=== PATIENT | female | born 1985 | race Caucasian/White ===

== ENCOUNTER 2021-11-26 04:46 | Emergency (ER) | payer SELFPAY ==
[2021-11-26] MEDS ORDERED: NA CHLORIDE 0.9% 1,000 ML ONE (05:20)
[2021-11-26 05:38] LABS: Absolute Lymphocytes (CBC) 0.8 K/uL (0.7-4.9); Hematocrit 40.3 % (36.0-45.0); Lymphocytes % 13.7 % (15.3-44.8); MCV 84.1 fL (80-100); MPV 11.9 fL (7.6-11.3); RBC Red Blood Cell Count 4.79 M/uL (3.86-4.86)
[2021-11-26 05:49] LABS: ALT/SGPT 80 U/L (12-78); AST/SGOT 55 U/L (15-37); Albumin 3.7 g/dL (3.4-5.0); Alkaline Phosphatase 65 U/L (45-117); BUN Blood Urea Nitrogen 8 mg/dL (7-18); Bicarbonate 19 mmol/L (21-32); Bilirubin Direct 0.2 mg/dL (0-0.2); Glomerular Filtration Rate 76 ml/min (=/>90); Glucose Level 95 mg/dL (74-106); Lipase 59 U/L (73-393); NT PRO-BNP 265 pg/mL (<125); Potassium 3.6 mmol/L (3.5-5.1); Protein, Total 7.1 g/dL (6.4-8.2); Sodium Level 137 mmol/L (136-145)
[2021-11-26 05:50] LABS: Troponin High Sensitivity < 3.0 pg/mL (<58.9)
[2021-11-26 06:41] LABS: Blood Morphology Comment NOT SEEN (NOT SEEN); Platelet Estimate DECR; Platelets, Giant FEW; White Blood Cell Scan OK (OK)
--- NOTE | 2021-11-26 06:55 | EDPHYS ---
Physician Documentation [facility] Name: Irina Kim Age: 36 yrs Sex: Female : 1985 Arrival Date: 11/26/2021 Time: 04:49 Bed 5 Private MD: ED Physician Zi Rodrigues HPI: 11/26 05:31 This 36 yrs old Female presents to ER via Ambulatory with complaints of judit Fever, Pain All Over, Chest Pain, Sore Throat, Abdominal Pain. 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 - Social history:: Smoking status: Patient reports the use of cigarette tobacco products, smokes one-half pack cigarettes per day. ROS: 05:32 Eyes: Negative for injury, pain, redness, and discharge, Neck: Negative for injury, judit pain, and swelling, Cardiovascular: Negative for chest pain, palpitations, and edema, Respiratory: Negative for shortness of breath, cough, wheezing, and pleuritic chest pain, Abdomen/GI: Negative for abdominal pain, nausea, vomiting, diarrhea, and constipation, Back: Negative for injury and pain, : Negative for injury, bleeding, discharge, and swelling, MS/Extremity: Negative for injury and deformity, Skin: Negative for injury, rash, and discoloration, Neuro: Negative for headache, weakness, numbness, tingling, and seizure, Psych: Negative for depression, anxiety, suicide ideation, homicidal ideation, and hallucinations, Allergy/Immunology: Negative for hives, rash, and allergies, Endocrine: Negative for neck swelling, polydipsia, polyuria, polyphagia, and marked weight changes, Hematologic/Lymphatic: Negative for swollen nodes, abnormal bleeding, and unusual bruising. 05:32 Constitutional: Positive for body aches, chills, fatigue, fever, malaise, poor PO intake. 05:32 ENT: Positive for difficulty handling secretions, difficulty swallowing, ear pain, hoarseness, rhinorrhea, sinus congestion, sinus pain, sore throat. 05:32 Neck: Positive for swollen nodes. Exam: 05:32 Constitutional: This is a well developed, well nourished patient who is awake, alert, judit and in no acute distress. Head/Face: Normocephalic, atraumatic. Eyes: Pupils equal round and reactive to light, extra-ocular motions intact. Lids and lashes normal. Conjunctiva and sclera are non-icteric and not injected. Cornea within normal limits. Periorbital areas with no swelling, redness, or edema. Neck: Trachea midline, no thyromegaly or masses palpated, and no cervical lymphadenopathy. Supple, full range of motion without nuchal rigidity, or vertebral point tenderness. No Meningismus. Chest/axilla: Normal chest wall appearance and motion. Nontender with no deformity. No lesions are appreciated. Cardiovascular: Regular rate and rhythm with a normal S1 and S2. No gallops, murmurs, or rubs. Normal PMI, no JVD. No pulse deficits. Respiratory: Lungs have equal breath sounds bilaterally, clear to auscultation and percussion. No rales, rhonchi or wheezes noted. No increased work of breathing, no retractions or nasal flaring. Abdomen/GI: Soft, non-tender, with normal bowel sounds. No distension or tympany. No guarding or rebound. No evidence of tenderness throughout. Back: No spinal tenderness. No costovertebral tenderness. Full range of motion. Female : Normal external genitalia. Skin: Warm, dry with normal turgor. Normal color with no rashes, no lesions, and no evidence of cellulitis. MS/ Extremity: Pulses equal, no cyanosis. Neurovascular intact. Full, normal range of motion. Neuro: Awake and alert, GCS 15, oriented to person, place, time, and situation. Cranial nerves II-XII grossly intact. Motor strength 5/5 in all extremities. Sensory grossly intact. Cerebellar exam normal. Normal gait. 05:32 ENT: Posterior pharynx: Airway: normal, no evidence of obstruction, Uvula: midline, edematous, erythema, swelling, is not appreciated, erythema, that is mild, exudate, is not appreciated. 05:38 ECG was reviewed by the Attending Physician. [facility] Vital Signs: 05:07 BP 147 / 97; Pulse 80; Resp 18; Temp 99.5(O); Pulse Ox 100% on R/A; Weight 86.18 kg; sm5 Height 5 ft. 4 in. (162.56 cm); Pain 8/10; 07:15 BP 134 / 94; Pulse 65; Resp 16; Temp 98.4(O); Pulse Ox 98% ; vg1 05:07 Body Mass Index 32.61 (86.18 kg, 162.56 cm) 5 MDM: 04:59 Patient medically screened. [facility] 05:32 Differential diagnosis: viral Infection, bacterial infection, URI, bronchitis, judit pneumonia gastroenteritis. Data reviewed: vital signs, nurses notes, lab test result(s), EKG, radiologic studies, plain films. Data interpreted: quality assurance monitor final: rate is 80 beats/min, rhythm is normal sinus rhythm, regular, Pulse oximetry: on room air. Counseling: I had a detailed discussion with the patient and/or guardian regarding: the historical points, exam findings, and any diagnostic results supporting the discharge/admit diagnosis, lab results, radiology results, the need for outpatient follow up, for definitive care, a family practitioner. 11/26 05:01 Order name: Basic Metabolic Panel; Complete Time: 06:54 [facility] 11/26 05:01 Order name: CBC with Diff; Complete Time: 06:54 [facility] 11/26 05:01 Order name: D-Dimer; Complete Time: 06:54 [facility] 11/26 05:01 Order name: LFT's; Complete Time: 06:54 [facility] 11/26 05:01 Order name: Magnesium; Complete Time: 06:54 [facility] 11/26 05:01 Order name: NT PRO-BNP; Complete Time: 06:54 [facility] 11/26 05:01 Order name: Troponin HS; Complete Time: 06:54 [facility] 11/26 05:01 Order name: XRAY Chest (1 view) [facility] 11/26 05:01 Order name: Lipase; Complete Time: 06:54 [facility] 11/26 05:01 Order name: SARS-COV-2 RT PCR (Document "Date of Onset" if Symptomatic); Complete Time: [facility] 06:54 11/26 05:01 Order name: Strep; Complete Time: 06:54 [facility] 11/26 05:01 Order name: Flu; Complete Time: 06:54 [facility] 11/26 05:50 Order name: Throat Culture [facility] 11/26 06:41 Order name: CBC Smear Scan; Complete Time: 06:54 [facility] 11/26 05:01 Order name: EKG; Complete Time: 05:02 [facility] 11/26 05:01 Order name: Cardiac monitoring; Complete Time: [facility] 11/26 05:01 Order name: EKG - Nurse/Tech; Complete Time: [facility] 11/26 05:01 Order name: IV Saline Lock; Complete Time: [facility] 11/26 05:01 Order name: Labs collected and sent; Complete Time: [facility] 11/26 05:01 Order name: O2 Per Protocol; Complete Time: [facility] 11/26 05:01 Order name: O2 Sat Monitoring; Complete Time: : [facility] EC:38 Rate is 75 beats/min. Rhythm is regular. QRS [place] is Normal. [place] interval is normal. QRS judit interval is normal. QT interval is normal. No Q waves. T waves are Normal. No ST changes noted. Clinical impression: Normal ECG and No evidence of ischemia. Interpreted by me. Reviewed by me. Administered Medications: Drug: NS 0.9% 1000 ml Route: IV; Rate: 1 bolus; Site: left antecubital; as6 07:30 Follow up: IV Status: Completed infusion; IV Intake: 1000ml vg1 07:05 CANCELLED (Duplicate Order): Motrin (ibuprofen) 800 mg PO once [facility] 07: Drug: Zithromax (azithromycin) 500 mg Route: PO; vg1 08:12 Follow up: Response: No adverse reaction vg1 07:22 Drug: Zofran (Ondansetron) 4 mg Route: IVP; Site: left antecubital; vg1 08:12 Follow up: Response: No adverse reaction; Marked relief of symptoms vg1 07:26 Drug: fentaNYL (PF) 50 mcg Route: IVP; Site: left antecubital; vg1 08:12 Follow up: Response: No adverse reaction; Pain is decreased; RASS: Alert and Calm (0) vg1 07:29 Not Given (Patient Refused): Aspirin Chewable Tablet 81 mg PO once vg1 07:29 Not Given (Patient Refused): Tylenol 1000 mg PO once vg1 Disposition Summary: 11/26/21 06:54 Discharge Ordered Location: Home judit Problem: new judit Symptoms: have improved judit Condition: Stable judit Diagnosis - Acute upper respiratory infection, unspecified judit - Fever, unspecified judit - Other malaise and fatigue judit - Coronavirus infection, unspecified judit - SARS-associated coronavirus as the cause of diseases classified elsewhere [facility] Followup: judit - With: Private Physician - When: 2 - 3 days - Reason: Recheck today's complaints, Continuance of care, Re-evaluation by your physician Discharge Instructions: - Discharge Summary Sheet judit - Fever, Adult judit - Upper Respiratory Infection, Adult judit - Cool Mist Vaporizer judit - Upper Respiratory Infection, Adult, [id number] [facility] - Aspirin and Your Heart judit - Cough, Adult judit - COVID-19 [facility] - COVID-19 Frequently Asked Questions [facility] - Things to Know about the COVID-19 Pandemic - [facility] - 10 Things You Can Do to Manage Your COVID-19 Symptoms at Home - [facility] - COVID-19: Quarantine vs. Isolation - [facility] - Prevent the Spread of COVID-19 if You Are Sick - [facility] Forms: - Medication Reconciliation Form [facility] - Thank You Letter [facility] - Antibiotic Education [facility] - Prescription Opioid Use [facility] Prescriptions: - budesonide 180 mcg/actuation Inhalation aerosol powdr breath activated - inhale 1 puff by INHALATION route 2 times per day; 1 Pump; Refills: 0, Product [facility] Selection Permitted - Pepcid 20 mg Oral Tablet - take 1 tablet by ORAL route every 12 hours for 21 days; 42 tablet; Refills: 0, [facility] Product Selection Permitted - Zithromax 500 mg Oral Tablet - take 1 tablet by ORAL route once daily for 5 days; 5 tablet; Refills: 0, [facility] Product Selection Permitted Signatures: Dispatcher [employer] Zi Davidson MD MD cha Garcia, Victoria RN RN vg1 Fei Mcfadden RN RN as6 Sara Godwin RN RN sm5 Corrections: (The following items were deleted from the chart) 07:05 05:30 Motrin (ibuprofen) 800 mg PO once ordered. [facility]
--- NOTE | 2021-11-26 06:55 | ER ---
Nurse's Notes [facility] Name: Irina Kim Age: 36 yrs Sex: Female : 1985 Arrival Date: 11/26/2021 Time: 04:49 Bed 5 Private MD: Diagnosis: Acute upper respiratory infection, unspecified;Fever, unspecified;Other malaise and fatigue;Coronavirus infection, unspecified;SARS-associated coronavirus as the cause of diseases classified elsewhere Presentation: 11/26 05:07 Chief complaint: Patient states: started having body aches, chest pain, headache and a sm5 fever tonight. took tyenol and motrin around 4am. Coronavirus screen: Vaccine status: Patient reports being unvaccinated. Ebola Screen: No symptoms or risks identified at this time. Initial Sepsis Screen: Does the patient meet any 2 criteria? No. Patient's initial sepsis screen is negative. Does the patient have a suspected source of infection? No. Patient's initial sepsis screen is negative. Risk Assessment: Do you want to hurt yourself or someone else? Patient reports no desire to harm self or others. Onset of symptoms was November 26, 2021. 05:07 Method Of Arrival: Ambulatory 5 05:07 Acuity: [place] 3 sm5 Triage Assessment: 05:09 General: Appears in no apparent distress. Behavior is cooperative. Pain: Complains of sm5 pain in generalized, chest, head. Neuro: Level of Consciousness is awake, alert, obeys commands, Oriented to person, place, time, situation, Reports headache. Cardiovascular: Reports chest pain, Capillary refill is > 3 seconds Patient's skin is warm and dry. Respiratory: Airway is patent Trachea midline Respiratory effort is even, unlabored. 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 - Social history:: Smoking status: Patient reports the use of cigarette tobacco products, smokes one-half pack cigarettes per day. Screenin:10 Abuse screen: Denies threats or abuse. Denies injuries from another. Nutritional sm5 screening: No deficits noted. Tuberculosis screening: No symptoms or risk factors identified. Fall Risk None identified. Assessment: 05:10 Pain: Pain does not radiate. Pain began 4 hours ago. 5 07:15 General: Appears uncomfortable, Behavior is calm, cooperative. Pain: Complains of pain vg1 in head Pain currently is 8 out of 10 on a pain scale. Neuro: Level of Consciousness is awake, alert, obeys commands, Oriented to person, place, time, situation, Reports headache. Cardiovascular: Patient's skin is warm and dry. Respiratory: Airway is patent Respiratory effort is even, unlabored. GI: Reports nausea. : No signs and/or symptoms were reported regarding the genitourinary system. EENT: No signs and/or symptoms were reported regarding the EENT system. Derm: Skin is intact, is healthy with good turgor. Musculoskeletal: Circulation, motion, and sensation intact. Vital Signs: 05:07 BP 147 / 97; Pulse 80; Resp 18; Temp 99.5(O); Pulse Ox 100% on R/A; Weight 86.18 kg; 5 Height 5 ft. 4 in. (162.56 cm); Pain 8/10; 07:15 BP 134 / 94; Pulse 65; Resp 16; Temp 98.4(O); Pulse Ox 98% ; vg1 05:07 Body Mass Index 32.61 (86.18 kg, 162.56 cm) [facility] ED Course: 04:49 Patient arrived in ED. ja2 04:59 Zi Rodrigues MD is Attending Physician. judit 05:06 Fei Mcfadden, RN is Primary Nurse. as6 05:09 Triage completed. [facility] 05:10 Arm band placed on right wrist. EKG completed in triage. Results shown to MD. 5 05:10 Patient has correct armband on for positive identification. Bed in low position. Call [facility] light in reach. Side rails up X2. Client placed on continuous cardiac and pulse oximetry monitoring. NIBP monitoring applied. 05:10 Patient maintains SpO2 saturation greater than 95% on room air. 5 05:10 No provider procedures requiring assistance completed. 5 05:15 Inserted saline lock: 18 gauge in left antecubital area, using aseptic technique. Blood as6 collected. 05:29 XRAY Chest (1 view) In Process Unspecified. EDMS 08:12 IV discontinued, intact, bleeding controlled, No redness/swelling at site. Pressure vg1 dressing applied. Administered Medications: 05:26 Drug: NS 0.9% 1000 ml Route: IV; Rate: 1 bolus; Site: left antecubital; as6 07:30 Follow up: IV Status: Completed infusion; IV Intake: 1000ml vg1 07:05 CANCELLED (Duplicate Order): Motrin (ibuprofen) 800 mg PO once judit 07:22 Drug: Zithromax (azithromycin) 500 mg Route: PO; vg1 08:12 Follow up: Response: No adverse reaction vg1 07:22 Drug: Zofran (Ondansetron) 4 mg Route: IVP; Site: left antecubital; vg1 08:12 Follow up: Response: No adverse reaction; Marked relief of symptoms vg1 07:26 Drug: fentaNYL (PF) 50 mcg Route: IVP; Site: left antecubital; vg1 08:12 Follow up: Response: No adverse reaction; Pain is decreased; RASS: Alert and Calm (0) vg1 07:29 Not Given (Patient Refused): Aspirin Chewable Tablet 81 mg PO once vg1 07:29 Not Given (Patient Refused): Tylenol 1000 mg PO once vg1 Medication: 05:10 VIS not applicable for this client. sm5 Intake: 07:30 IV: 1000ml; Total: 1000ml. vg1 Outcome: 06:54 Discharge ordered by . judit 08:11 Discharged to home ambulatory, with family. vg1 08:11 Condition: good 08:11 Discharge instructions given to patient, Instructed on discharge instructions, follow up and referral plans. medication usage, Demonstrated understanding of instructions, follow-up care, medications, Prescriptions given X 4. 08:12 Patient left the ED. vg1 Signatures: Dispatcher [employer] EDZi Carrillo MD MD cha Garcia, Victoria, RN RN vg1 Irina Vega Ashby, RN RN as6 Sara Godwin RN RN sm5
[2021-11-26] MEDS ORDERED: ONDANSETRON 4 MG/2 ML VIAL ONE (07:28)
[2021-11-26] MEDS ORDERED: FENTANYL CITR 100 MCG/2 ML ONE (07:28)
[2021-11-26] MEDS ORDERED: AZITHROMYCIN 250 MG TAB ONE (07:28)
[2021-11-26 08:24] VITALS: BP 134/94; TEMP 98.4; O2SAT 98
--- NOTE | 2021-11-26 16:25 | RAD REPORT ---
EXAM DESCRIPTION: RAD - Chest Single View - 11/26/2021 5:27 am CLINICAL HISTORY: The patient is 36 years old and is Female; CHEST PAIN TECHNIQUE: Frontal view of the chest. COMPARISON: No relevant prior studies available. FINDINGS: Lungs: Mildly prominent interstitial markings. No consolidation. Pleural space: Unremarkable. No pneumothorax. Heart: Unremarkable. Mediastinum: Unremarkable. Bones/joints: Unremarkable. IMPRESSION: Mildly prominent interstitial markings. No consolidation. Electronically signed by: Jaylen Barrientos MD 11/26/2021 6:18 AM CDT Due to temporary technical issues with the PACS/Fluency reporting system, reports are being signed by the in house radiologists without review as a courtesy to insure prompt reporting. The interpreting radiologist is fully responsible for the content of the report.
--- NOTE | 2021-11-27 07:58 | EKG ---
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
== END 2021-11-26 08:12 | disposition home or self-care (01) ==
LOC: ER 04:46
DX: J22 Unspecified acute lower respiratory infection (principal); R50.9 Fever, unspecified; R53.81 Other malaise; U07.1 COVID-19; R07.9 Chest pain, unspecified; R51.9 Headache, unspecified; I10 Essential (primary) hypertension
CPT/HCPCS: 36415; 71045; 80048; 80076; 83690; 83735; 83880; 84484; 85025; 85379; 87070; 87081; 87804; 93005; 96361; 96374; 96375; 99284; J2405; J3010; J7030; U0003